=== PATIENT | female | born 1960 | race Caucasian/White ===

== ENCOUNTER 2023-09-02 00:43 | Emergency (ER) | payer OTHER ==
[2023-09-02 01:11] VITALS: TEMP 97.8
[2023-09-02 01:39] LABS: Absolute Neutrophil Ct (ANC) 5.58 x10^3/uL (1.4-6.9); BASOPHIL % 0.3 % (0.0-0.4); Basophil (Absolute #) 0.02 x10^3/uL (0-0.4); Eosinophil % 0.9 % (0.00-5.0); Eosinophil (Absolute #) 0.07 x10^3/uL (0-0.5); Hematocrit 41.3 % (35-47); Hemoglobin 13.7 g/dL (12.0-16.0); IMMATURE GRAN # 0.02 x10^3u/L (0.00-0.03); IMMATURE GRAN % 0.3 % (0.00-0.4); Lymphocyte (Absolute #) 1.28 x10^3/uL (1.0-4.6); Lymphocytes % 17.1 % (24.0-44.0); Mean Cell Volume 95.6 fL (78-100); Mean Corpuscular Hemoglobin 31.7 pg (26-32); Mean Corpuscular Hgb Concent. 33.2 g/dL (32-36); Mean Platelet Volume 10.3 fL (7.5-11.0); Monocyte (Absolute #) 0.53 x10^3/uL (0.0-1.3); Monocytes % 7.1 % (0.0-12.0); Neutrophil % 74.3 % (36.0-66.0); Platelet Count 208 x10^3/uL (150-450); Red Blood Count 4.32 x10^6/uL (4.1-5.4); Red Cell Distribution Width 11.6 % (11.5-14.0); White Blood Count 7.5 x10^3/uL (4.0-10.5)
[2023-09-02 01:44] LABS: A-aADO2 4; ABG HEMOGLOBIN 13.5; ABG POTASSIUM 3.5 (3.5-5.1); ABG SITE LEFT RADIAL; ALLEN TEST OK? YES; ARTERIAL BLD GAS O2 SATURATION 98.9 % (95-100); ARTERIAL BLOOD GAS BASE EXCESS 1.1 (-2.0-2.0); ARTERIAL BLOOD GAS FIO2 21 %; ARTERIAL BLOOD GAS PCO2 37 mmHg (35-45); ARTERIAL BLOOD GAS PO2 99 mmHg (75-100); ARTERIAL BLOOD GAS pH 7.44 (7.35-7.45); CARBOXYHEMOGLOBIN 1.2 % THgb (0.0-6.9); HCO3- 25.1 (22-28); HGB O2 SAT 97.2 g/dF (94-100); Methhemoglobin 0.5 % (1.4-1.5); paO2 pAO1 0.96
--- NOTE | 2023-09-02 01:51 | ERPHSYRPT ---
- History of Present Illness Time Seen by Provider: 09/02/23 01:30 Source: patient Exam Limitations: no limitations Patient Subjective Stated Complaint: pt states "I think I have carbon monoxide poisoning." Triage Nursing Assessment: pt ambulatory to bed by self with steady gait, pt alert and oriented x3, skin pwd, pt believes that she has carbon monoxide poisoning d/t a propane fireplace leaking, pt has no complaints at this time, pt states that she was lightheaded and nauseated earlier when she woke up but is no longer lightheaded or nauseous, pt afebrile, pt in no respiratory distress, o2 sat is 98-99% on RA. Physician History: 63 years old healthy female presented in the ER for evaluation of carbon monoxide poisoning. Patient reports she had a new propane heater, yesterday it was running, was noted there was a leak but she did not open windows but had a fan on. This evening she came back, went to bed around 930 and around 1130 she woke up feeling dizzy lightheaded, nauseated, feeling tired. Denies any chest pain palpitation, confusion/visual disturbance, difficulty breathing, muscle cramp. She is feeling better on presentation in the ER, room air oxygen saturation of 98%, no tachypnea or tachycardia. Allergies/Adverse Reactions: No Known Drug Allergies Allergy (Verified 09/02/23 01:04) Home Medications: Amox Tr/Potass Clav. 875 mg [Augmentin 875-125 Tablet] 875 mg PO BID 09/02/23 [History] levoFLOXacin [Levofloxacin] 500 mg PO DAILY 09/02/23 [History] Hx Tetanus, Diphtheria Vaccination/Date Given: Yes Hx Influenza Vaccination/Date Given: No Hx Pneumococcal Vaccination/Date Given: No Immunizations Up to Date: No Travel Risk - International Travel Have you traveled outside of the country in past 3 weeks: No - Emerging Infectious Disease Are you exhibiting symptoms associated with any current EIDs: No - Review of Systems Constitutional: Fatigue Eyes: No Symptoms Ears, Nose, & Throat: No Symptoms Respiratory: No Symptoms Cardiac: No Symptoms Abdominal/Gastrointestinal: Nausea Genitourinary Symptoms: No Symptoms Musculoskeletal: No Symptoms Skin: No Symptoms Neurological: Dizziness Psychological: No Symptoms Endocrine: No Symptoms Hematologic/Lymphatic: No Symptoms Immunological/Allergic: No Symptoms - Past Medical History Pertinent Past Medical History: Yes Neurological History: No Pertinent History ENT History: No Pertinent History Cardiac History: No Pertinent History Respiratory History: No Pertinent History Endocrine Medical History: No Pertinent History Musculoskeletal History: No Pertinent History GI Medical History: No Pertinent History History: No Pertinent History Psycho-Social History: No Pertinent History Female Reproductive Disorders: No Pertinent History - Past Surgical History Past Surgical History: Yes Neuro Surgical History: No Pertinent History Cardiac: No Pertinent History Respiratory: No Pertinent History Gastrointestinal: No Pertinent History Genitourinary: No Pertinent History Musculoskeletal: No Pertinent History Female Surgical History: Section - Social History Smoking Status: Never smoker Exposure to second hand smoke: Yes Drug Use: none - Nursing Vital Signs Nursing Vital Signs: Initial Vital Signs Temperature 97.8 F 09/02/23 01:05 Pulse Rate 65 09/02/23 01:05 Respiratory Rate 26 H 09/02/23 01:05 Blood Pressure 121/60 09/02/23 01:05 O2 Sat by Pulse Oximetry 99 09/02/23 01:05 Pain Scale Pain Intensity 0 - Physical Exam General Appearance: no apparent distress, alert Eye Exam: PERRL/EOMI Ears, Nose, Throat Exam: normal ENT inspection, pharynx normal, moist mucous m embranes Neck Exam: normal inspection, non-tender, supple, full range of motion Respiratory Exam: normal breath sounds, lungs clear Cardiovascular Exam: regular rate/rhythm, normal heart sounds Gastrointestinal/Abdomen Exam: soft, normal bowel sounds, No tenderness Extremity Exam: normal inspection, normal range of motion Neurologic Exam: alert, oriented x 3, cooperative, [place] [employer] II-XII nml as tested, nml cerebellar function, nml station & gait, sensation nml, No normal mood/affect (Anxious), No motor deficits Skin Exam: normal color SpO2 Interpretation: normal SpO2: 99 O2 Delivery: Room Air - Course EKG Interpreted by Me: RATE (66), Sinus Rhythm, NORMAL AXIS, NORMAL INTERVALS, NORMAL QRS Ordered Tests: Active Orders 24 hr Category Date Time Status ARTERIAL BLOOD GASES Stat Lab 09/02/23 01:35 Completed CBC W DIFF Stat Lab 09/02/23 01:37 Completed CK-Creatinine Phosphokinase Stat Lab 09/02/23 01:37 Completed CMP Stat Lab 09/02/23 01:37 Completed Lactic Acid Stat Lab 09/02/23 01:35 Completed TROPONIN Q4H Lab 09/02/23 01:37 Completed TROPONIN Q4H Lab 09/02/23 05:30 Ordered TROPONIN Q4H Lab 09/02/23 09:30 Ordered Lab/Rad Data: Laboratory Result Diagrams 09/02/23 01:37 09/02/23 01:37 Laboratory Results 09/02/23 09/02/23 09/02/23 Range/Units 01:37 01:37 01:37 WBC 7.5 (4.0-10.5) x10^3/uL RBC 4.32 (4.1-5.4) x10^6/uL Hgb 13.7 (12.0-16.0) g/dL Hct 41.3 (35-47) % MCV 95.6 (78-100) fL MCH 31.7 (26-32) pg MCHC 33.2 (32-36) g/dL RDW 11.6 (11.5-14.0) % Plt Count 208 (150-450) x10^3/uL MPV 10.3 (7.5-11.0) fL Gran % 74.3 H (36.0-66.0) % Immature Gran % (Auto) 0.3 (0.00-0.4) % Nucleat RBC Rel Count 0.0 (0.00-0.1) % Eos # (Auto) 0.07 (0-0.5) x10^3/uL Immature Gran # (Auto) 0.02 (0.00-0.03) x10^3u/L Absolute Lymphs (auto) 1.28 (1.0-4.6) x10^3/uL Absolute Monos (auto) 0.53 (0.0-1.3) x10^3/uL Absolute Nucleated RBC 0.00 (0.00-0.01) x10^3u/L Lymphocytes % 17.1 L (24.0-44.0) % Monocytes % 7.1 (0.0-12.0) % Eosinophils % 0.9 (0.00-5.0) % Basophils % 0.3 (0.0-0.4) % Absolute Granulocytes 5.58 (1.4-6.9) x10^3/uL Basophils # 0.02 (0-0.4) x10^3/uL Puncture Site pCO2 (35-45) mmHg pO2 (75-100) mmHg Base Excess (-2.0-2.0) O2 Saturation (94-100) g/dF ABG pH (7.35-7.45) ABG HCO3 (22-28) ABG O2 Sat (Measured) (95-100) % Bull Test A-a Gradient a/A Ratio Hemoglobin Carboxyhemoglobin (0.0-6.9) % THgb Methemoglobin (1.4-1.5) % Potassium 3.6 (3.5-5.1) Temperature C POC O2 Flow Rate % Sodium 138 (135-145) mmol/L Chloride 108 H (98-107) mmol/L Carbon Dioxide 23 (22-30) mmol/L Anion Gap 10.4 (5-15) MEQ/L BUN 17 (7-17) mg/dL Creatinine 0.60 (0.52-1.04) mg/dL Estimated GFR 100.2 ML/MIN Glucose 110 H (74-106) mg/dL Lactic Acid (0.4-2.0) Calcium 9.0 (8.4-10.2) mg/dL Total Bilirubin 0.40 (0.2-1.3) mg/dL AST 25 (14-36) U/L ALT 19 (0-35) U/L Alkaline Phosphatase 85 (38-126) U/L Creatine Kinase 45 (30-135) U/L Troponin I < 0.012 (0.000-0.033) ng/mL Serum Total Protein 6.8 (6.3-8.2) g/dL Albumin 3.9 (3.5-5.0) g/dL 09/02/23 09/02/23 Range/Units 01:35 01:35 WBC (4.0-10.5) x10^3/uL RBC (4.1-5.4) x10^6/uL Hgb (12.0-16.0) g/dL Hct (35-47) % MCV (78-100) fL MCH (26-32) pg MCHC (32-36) g/dL RDW (11.5-14.0) % Plt Count (150-450) x10^3/uL MPV (7.5-11.0) fL Gran % (36.0-66.0) % Immature Gran % (Auto) (0.00-0.4) % Nucleat RBC Rel Count (0.00-0.1) % Eos # (Auto) (0-0.5) x10^3/uL Immature Gran # (Auto) (0.00-0.03) x10^3u/L Absolute Lymphs (auto) (1.0-4.6) x10^3/uL Absolute Monos (auto) (0.0-1.3) x10^3/uL Absolute Nucleated RBC (0.00-0.01) x10^3u/L Lymphocytes % (24.0-44.0) % Monocytes % (0.0-12.0) % Eosinophils % (0.00-5.0) % Basophils % (0.0-0.4) % Absolute Granulocytes (1.4-6.9) x10^3/uL Basophils # (0-0.4) x10^3/uL Puncture Site LEFT RADIAL pCO2 37 (35-45) mmHg pO2 99 (75-100) mmHg Base Excess 1.1 (-2.0-2.0) O2 Saturation 97.2 (94-100) g/dF ABG pH 7.44 (7.35-7.45) ABG HCO3 25.1 (22-28) ABG O2 Sat (Measured) 98.9 (95-100) % Bull Test YES A-a Gradient 4 a/A Ratio 0.96 Hemoglobin 13.5 Carboxyhemoglobin 1.2 (0.0-6.9) % THgb Methemoglobin 0.5 L (1.4-1.5) % Potassium 3.5 (3.5-5.1) Temperature 37.0 C POC O2 Flow Rate 21 % Sodium (135-145) mmol/L Chloride (98-107) mmol/L Carbon Dioxide (22-30) mmol/L Anion Gap (5-15) MEQ/L BUN (7-17) mg/dL Creatinine (0.52-1.04) mg/dL Estimated GFR ML/MIN Glucose (74-106) mg/dL Lactic Acid 0.5 (0.4-2.0) Calcium (8.4-10.2) mg/dL Total Bilirubin (0.2-1.3) mg/dL AST (14-36) U/L ALT (0-35) U/L Alkaline Phosphatase (38-126) U/L Creatine Kinase (30-135) U/L Troponin I (0.000-0.033) ng/mL Serum Total Protein (6.3-8.2) g/dL Albumin (3.5-5.0) g/dL - Progress Progress: improved Progress Note: 09/02/23 02:52 63-year-old is evaluated for possible carbon monoxide poisoning. Patient is currently asymptomatic. EKG is normal sinus rhythm. Normal white count, unremarkable chemistries, normal carboxyhemoglobin, normal CK level and low lactate. ABG is normal. Patient is asymptomatic. I believe patient has minimal exposure if it was there. She is given instructions about CO monitoring and have it checked before going back home. Patient will go to her son's [facility]. Counseled pt/family regarding: lab results, diagnosis, need for follow-up Medical Desision Making - Diagnostic Testing Diagnostic test were ordered, analyzed, and reviewed by me: Yes - Departure Departure Disposition: Home Clinical Impression: Carbon monoxide exposure Condition: Stable Critical Care Time: No Referrals: SANDRO JOHNSON [Primary Care Provider] - Follow up with PCP 1 day Instructions: Carbon Monoxide Poisoning (DC) Additional Instructions: Do not go back to the same place until has been evaluated/cleared by fire department with no carbon monoxide leak and get carbon monoxide detectors installed. Follow-up with primary care physician for reevaluation 1 to 2 days. Return to ER for worsening of symptoms, dizziness/confusion, chest pain, difficulty breathing, nauseated, visual disturbance etc.
[2023-09-02 01:54] LABS: ALBUMIN 3.9 g/dL (3.5-5.0); ANION GAP 10.4 MEQ/L (5-15); BILIRUBIN,TOTAL 0.4 mg/dL (0.2-1.3); Creatinine 1 0.6 mg/dL (0.52-1.04); EST GLOMERULAR FILTRATION RATE 100.2 ML/MIN; Potassium 3.6 mmol/L (3.5-5.1); Total Protein 6.8 g/dL (6.3-8.2)
[2023-09-02 02:02] VITALS: RESP 18
[2023-09-02 03:01] VITALS: BP 109/59; PULSE 68; O2SAT 98
== END 2023-09-02 03:07 | disposition home or self-care (01) ==
LOC: ED 00:43
DX: T58.11XA Toxic effect of carbon monoxide from utility gas, accidental (unintentional), initial encounter (principal); R42 Dizziness and giddiness; R11.0 Nausea; Z79.899 Other long term (current) drug therapy
CPT/HCPCS: 36415; 36600; 80053; 82375; 82550; 82803; 83605; 84484; 85025; 99283